=== PATIENT | male | born 1965 | race Caucasian/White ===

== ENCOUNTER → 2019-04-25 | Outpatient (CLI) | payer BC ==
--- NOTE | 2019-04-26 09:32 | REP ---
MRI left hip without contrast: History: Mild fascial strain or tendon disruption in the left proximal thigh. Rule out proximal hamstring avulsion. Water skiing injury. Technique: Coronal fat sat T2 and T1 weighted scans of both hips are acquired. Smaller field of view high resolution T2 fat sat imaging in all three planes is performed of the left hip as well. MRI findings: Cortical and medullary bone signal intensity are normal in the proximal femurs and in the visualized bony pelvic ring. There is no evidence of avascular necrosis or occult fracture. There is a well-defined T2 hyperintense lesion in the femoral neck on the right measuring 21 mm consistent with a small intraosseous cyst. No other intraosseous abnormality. There is no evidence of significant hip joint effusion on either side. 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 Heterogeneous T2 edema is seen along the inferolateral and superolateral aspect of the ischial tuberosity. No bony avulsion is appreciated. Redundant retracted tendon is seen just medial to the sciatic nerve. The sciatic nerve is surrounded by edema and hemorrhage as it courses posterior to the proximal femur. 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 Electronically Signed by Massimo Robbins MD 04/26/2019 09:41 A
== END ==
LOC: M RAD 14:48
PROVIDERS: ATTEND Orthopaedic Surgery Sports Medicine
DX: S76.312A Strain of muscle, fascia and tendon of the posterior muscle group at thigh level, left thigh, initial encounter (principal)

== ENCOUNTER 2023-08-12 07:17 | Day surgery (SDC) | payer OTHER ==
[~2023-08-12] VITALS: Ht 177.8 cm; Wt 96.6 kg
[~2023-08-12 07:17] MED LIST: NS 1,000 ML IV ONE; PRED10TA2 PO; PRED1TABL PO; PRED5TA PO
[2023-08-12 10:00] VITALS: BP 133/71; TEMP 97.7; O2SAT 97
== END 2023-08-12 10:01 | disposition home or self-care (01) ==
LOC: M OPP 07:17
PROVIDERS: ATTEND Internal Medicine Gastroenterology
DX: Z12.11 Encounter for screening for malignant neoplasm of colon (principal); K63.5 Polyp of colon; K57.30 Diverticulosis of large intestine without perforation or abscess without bleeding; K64.8 Other hemorrhoids; Z79.52 Long term (current) use of systemic steroids; Z87.891 Personal history of nicotine dependence